=== PATIENT | male | born 1990 | race Caucasian/White ===

== ENCOUNTER 2017-08-27 17:40 | Emergency (ER) | payer MEDICAID ==
[~2017-08-27] VITALS: Ht 182.9 cm; Wt 81.8 kg
[~2017-08-27 17:40] MED LIST: CETI-102 PO; DIAZ5TAB PO; FLUT16SP2 BOTHNARES; HYDR-3965 PO; PENI500T2 PO; PSEU-250 PO
[2017-08-27] MEDS ORDERED: HYDR-3965 PO (18:22)
[2017-08-27] MEDS ORDERED: DOXY50CA6 PO (18:22)
[2017-08-27] MEDS ORDERED: IBUP-1985 PO (18:22)
[2017-08-27] MEDS ORDERED: ACET650T2 PO (18:22)
[2017-08-27] MEDS ORDERED: PANT-47 PO (18:22)
[2017-08-27] MEDS ORDERED: ONDA8TAB9 PO (18:22)
[2017-08-27 18:58] VITALS: BP 136/69
== END 2017-08-27 19:00 | disposition home or self-care (01) ==
LOC: ER 17:41
DX: K08.89 Other specified disorders of teeth and supporting structures (principal); Z79.899 Other long term (current) drug therapy
CPT/HCPCS: 99283